=== PATIENT | female | born 1970 | race Caucasian/White ===

== ENCOUNTER 2017-08-03 19:24 | Emergency (ER) | payer BC ==
[~2017-08-03] VITALS: Ht 165.1 cm; Wt 85.9 kg
[2017-08-03 21:07] VITALS: BP 126/79
== END 2017-08-03 21:44 | disposition home or self-care (01) ==
LOC: ED 19:24
DX: R33.9 Retention of urine, unspecified (principal)
CPT/HCPCS: Q0162

== ENCOUNTER 2017-08-04 13:19 | Emergency (ER) | payer BC ==
[~2017-08-04] VITALS: Ht 165.1 cm; Wt 84.4 kg
[2017-08-04 13:29] VITALS: Ht 165.1 cm; Wt 84.4 kg
[2017-08-04 14:16] VITALS: BP 99/60
== END 2017-08-04 14:16 | disposition home or self-care (01) ==
LOC: ED 13:19
DX: Z46.6 Encounter for fitting and adjustment of urinary device (principal); Z90.710 Acquired absence of both cervix and uterus